=== PATIENT | male | born 1955 | race Two or more races ===

== ENCOUNTER 2016-04-04 10:15 | Emergency (ER) | payer MEDICAID, OTHER ==
[~2016-04-04] VITALS: Ht 170.2 cm; Wt 76.0 kg
[2016-04-04] MEDS ORDERED: ACETAMINOPHEN 500 MG TABLET PO ONE (14:15)
[2016-04-04] MEDS ORDERED: IBUPROFEN 600 MG TABLET PO ONE (14:15)
[2016-04-04 14:27] VITALS: BP 141/80
== END 2016-04-04 14:29 | disposition home or self-care (01) ==
LOC: EMS 10:16
DX: M54.5 Low back pain (principal)
CPT/HCPCS: 72100; 99284